=== PATIENT | female | born 1985 | race Hispanic/Latino ===

== ENCOUNTER 2020-03-29 14:34 | Emergency (ER) | payer OTHER ==
[~2020-03-29] VITALS: Ht 157.5 cm; Wt 93.0 kg
[2020-03-29 15:26] LABS: BASOPHILS % 0.3 % (0.0-1.0); EOSINOPHILS # (AUTO) 0.1 (0.0-0.4); EOSINOPHILS % 1.3 % (0.0-6.0); HEMATOCRIT 34.5 % (34.2-44.1); HEMOGLOBIN 11.1 g/dL (12.0-16.0); LYMPHOCYTES # (AUTO) 1.2 (1.0-3.2); LYMPHOCYTES % 13.5 % (18.0-39.1); MEAN CORPUSCULAR HEMOGLOBIN 27.5 pg (28-32); MEAN CORPUSCULAR HGB CONC 32.2 g/dL (31-35); MEAN CORPUSCULAR VOLUME 85.4 fL (81-99); MONOCYTES # (AUTO) 0.6 (0.2-0.8); NEUTROPHILS # (AUTO) 6.9 (2.1-6.9); NEUTROPHILS % 77.3 % (38.7-80.0); PLATELET COUNT 226 x10e3/uL (140-360); RED BLOOD COUNT 4.04 x10e6/uL (3.6-5.1); RED CELL DISTRIBUTION WIDTH 14.2 % (11.7-14.4)
[2020-03-29] MEDS ORDERED: ONDANSETRON HCL INJ 2MG/ML 2ML 2 MG/ML VIAL IV STA (15:26)
[2020-03-29] MEDS ORDERED: MORPHINE SULFATE INJ 4 MG/ML INJ 1ML IV PRN ×2 (15:30→17:15)
[2020-03-29] MEDS ORDERED: SODIUM CHLORIDE 0.9% 1000ML 1,000 ML IV SCH ×2 (15:30→17:00)
[2020-03-29 15:44] LABS: PREGNANCY TEST, URINE NEGATIVE (NEGATIVE)
[2020-03-29 15:45] LABS: CLARITY,URINE CLEAR (CLEAR); COLOR,URINE YELLOW (YELLOW); KETONES,URINE NEGATIVE (NEGATIVE); LEUKOCYTE ESTERASE ,URINE NEGATIVE (NEGATIVE); NITRITE,URINE NEGATIVE (NEGATIVE); PROTEIN,URINE DIPSTICK NEGATIVE (NEGATIVE)
[2020-03-29 15:46] LABS: BILIRUBIN,URINE NEGATIVE (NEGATIVE); URINE UROBILINOGEN 0.2 mg/dL (0.2 - 1)
[2020-03-29 15:52] LABS: ALANINE AMINOTRANSFERASE 29 IU/L (0-55); ALBUMIN 3.9 g/dL (3.5-5.0); ALBUMIN/GLOBULIN RATIO 1.1 (0.8-2.0); ALKALINE PHOSPHATASE 74 IU/L (40-150); ANION GAP 14.7 mmol/L (8-16); BLOOD UREA NITROGEN 12 mg/dL (7-26); BUN/CREATININE RATIO 20 (6-25); CALCIUM 8.7 mg/dL (8.4-10.2); CARBON DIOXIDE 22 mmol/L (22-29); CHLORIDE 104 mmol/L (98-107); EST GLOMERULAR FILTRATION RATE > 60 ML/MIN (60-); GLUCOSE 89 mg/dL (74-118); POTASSIUM 3.7 mmol/L (3.5-5.1); SODIUM 137 mmol/L (136-145)
[2020-03-29 15:57] LABS: BACTERIA,URINE MANY /HPF; EPITHELIAL CELLS,URINE MODERATE /LPF; MUCUS,URINE FEW (RARE); RENAL EPITHELIAL CELLS,URINE FEW; TRANSITIONAL EPI CELLS,URINE FEW
--- NOTE | 2020-03-29 16:04 | Emergency Department Note ---
History of Present Illnes History of Present Illness Chief Complaint: Abdominal Complaints History of Present Illness This is a 35 year old female arrives to the ED via require abdominal pain for several days. Patient states pain wraps on her back and is also complaining of nausea and vomiting. . 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[employer] states pain came on suddenly after drinking protein shake c/o nausea no vomiting no diarrhea states she's had this happen once before after hysterectomy apr 2019 but not since denies dysuria/hematuria no hx of kidney stones still has gallbladder and appendix states pain was so pain she almost passed out but did not pass out just got sweaty and pale never smoked occasional drinker denies drug use Historian: Patient Arrival Mode: Car Onset (how long ago): day(s) Radiation: Reports back Severity: moderate Onset quality: sudden Duration (how long): day(s) Timing of current episode: constant Progression: worsening Chronicity: new Relieving factors: none Exacerbating factors: none Associated symptoms: Reports nausea/vomiting Past Medical/Family History Physician Review I have reviewed the patient's past medical and family history. Any updates have been documented here. Past Medical History Recent Fever: No Clinical Suspicion of Infectio: No New/Unexplained Change in Ment: No Past Medical History: None Past Surgical History: Hysterectomy Social History Smoking Cessation: Never Smoker Counseling Performed: No Alcohol Use: None Any Illegal Drug Use: No Physically hurt or threatened: No Other Any Pre-Existing Lines (PICC,: No Review of Systems Review of Systems Constitutional: Reports no symptoms EENTM: Reports no symptoms Cardiovascular: Reports no symptoms Respiratory: Reports no symptoms Gastrointestinal: Reports as per HPI, Reports abdominal pain, Reports nausea, Reports vomiting Genitourinary: Reports no symptoms Musculoskeletal: Reports no symptoms Integumentary: Reports no symptoms Neurological: Reports no symptoms Psychological: Reports no symptoms Endocrine: Reports no symptoms Hematological/Lymphatic: Reports no symptoms Physical Exam Related Data Allergies: Coded Allergies: No Known Allergies (Unverified , 03/29/20) Triage Vital Signs Vital Signs Date Time Temp Pulse Resp B/P (MAP) Pulse Ox O2 Delivery O2 Flow Rate FiO2 03/29/20 14:54 98.8 78 18 149/91 100 Room Air Vital signs reviewed: Yes Physical Exam CONSTITUTIONAL Constitutional: Present well-developed, Present well-nourished HENT HENT: Present normocephalic, Present atraumatic, Present oropharynx cira r/moist, Present nose normal HENT L/R: Present left ext ear normal, Present right ext ear normal EYES Eyes: Reports PERRL, Reports conjunctivae normal NECK Neck: Present ROM normal PULMONARY Pulmonary: Present effort normal, Present breath sounds normal CARDIOVASCULAR Cardiovascular: Present regular rhythm, Present heart sounds normal, Present capillary refill normal, Present normal rate GASTROINTESTINAL Abdominal: Present soft, Present bowel sounds normal, Present tender, Present guarding GENITOURINARY Genitourinary: Present exam deferred SKIN Skin: Present warm, Present dry MUSCULOSKELETAL Musculoskeletal: Present ROM normal NEUROLOGICAL Neurological: Present alert, Present oriented x 3, Present no gross motor or sensory deficits PSYCHOLOGICAL Psychological: Present mood/affect normal, Present judgement normal Results Laboratory Result Diagram: 03/29/20 1510 03/29/20 1510 Laboratory Laboratory Tests Test 03/29/20 15:10 03/29/20 15:04 White Blood Count 8.90 x10e3/uL (4.8-10.8) Red Blood Count 4.04 x10e6/uL (3.6-5.1) Hemoglobin 11.1 g/dL (12.0-16.0) Hematocrit 34.5 % (34.2-44.1) Mean Corpuscular Volume 85.4 fL (81-99) Mean Corpuscular Hemoglobin 27.5 pg (28-32) Mean Corpuscular Hemoglobin Concent 32.2 g/dL (31-35) Red Cell Distribution Width 14.2 % (11.7-14.4) Platelet Count 226 x10e3/uL (140-360) Neutrophils (%) (Auto) 77.3 % (38.7-80.0) Lymphocytes (%) (Auto) 13.5 % (18.0-39.1) Monocytes (%) (Auto) 7.0 % (4.4-11.3) Eosinophils (%) (Auto) 1.3 % (0.0-6.0) Basophils (%) (Auto) 0.3 % (0.0-1.0) Neutrophils # (Auto) 6.9 (2.1-6.9) Lymphocytes # (Auto) 1.2 (1.0-3.2) Monocytes # (Auto) 0.6 (0.2-0.8) Eosinophils # (Auto) 0.1 (0.0-0.4) Basophils # (Auto) 0.0 (0.0-0.1) Absolute Immature Granulocyte (auto 0.05 x10e3/uL (0-0.1) Sodium Level 137 mmol/L (136-145) Potassium Level 3.7 mmol/L (3.5-5.1) Chloride Level 104 mmol/L (98-107) Carbon Dioxide Level 22 mmol/L (22-29) Anion Gap 14.7 mmol/L (8-16) Blood Urea Nitrogen 12 mg/dL (7-26) Creatinine 0.60 mg/dL (0.57-1.11) Estimat Glomerular Filtration Rate > 60 ML/MIN (60-) BUN/Creatinine Ratio 20 (6-25) Glucose Level 89 mg/dL (74-118) Calcium Level 8.7 mg/dL (8.4-10.2) Total Bilirubin 0.4 mg/dL (0.2-1.2) Aspartate Amino Transf (AST/SGOT) 30 IU/L (5-34) Alanine Aminotransferase (ALT/SGPT) 29 IU/L (0-55) Alkaline Phosphatase 74 IU/L (40-150) Total Protein 7.3 g/dL (6.5-8.1) Albumin 3.9 g/dL (3.5-5.0) Globulin 3.4 g/dL (2.3-3.5) Albumin/Globulin Ratio 1.1 (0.8-2.0) Urine Color Yellow (YELLOW) Urine Clarity Clear (CLEAR) Urine pH 5.5 (5 - 7) Urine Specific [place] 1.025 (1.010-1.025) Urine Protein Negative (NEGATIVE) Urine Glucose (UA) Negative (NEGATIVE) Urine Ketones Negative (NEGATIVE) Urine Blood Negative (NEGATIVE) Urine Nitrite Negative (NEGATIVE) Urine Bilirubin Negative (NEGATIVE) Urine Urobilinogen 0.2 mg/dL (0.2 - 1) Urine Leukocyte Esterase Negative (NEGATIVE) Urine RBC 6-10 /HPF (0-5) Urine WBC 6-10 /HPF (0-5) Urine Epithelial Cells Moderate /LPF (NONE) Urine Transitional Epithelial Cells Few (NONE) Urine Renal Epithelial Cells Few (NONE) Urine Bacteria Many /HPF (NONE) Urine Mucus Few (RARE) Urine Test Negative (NEGATIVE) Lab results reviewed: Yes Imaging Imaging results reviewed: Yes Assessment & Plan Medical Decision Making MDM 35-year-old female arrived to the ED with right upper quadrant abdominal pain. Patient clinically appears positive for acute cholecystitis. Patient admitted for general surgery evaluation. Assessment & Plan Final Impression: (1) Acute cholecystitis Depart Disposition: ADMITTED Last Vital Signs Date Time Temp Pulse Resp B/P (MAP) Pulse Ox O2 Delivery O2 Flow Rate FiO2 03/29/20 14:54 98.8 78 18 149/91 100 Room Air Medications in the ED Sodium Chloride 1,000 ml @ 100 mls/hr Q10H IV Last administered on 03/29/20at 15:50; Admin Dose 100 MLS/HR; Start 03/29/20 at 15:30; Stop 04/28/20 at 15:29 Morphine Sulfate 4 mg ONCE PRN IV SEVERE PAIN (7-10) Last administered on 03/29/20at 15:50; Admin Dose 4 MG; Start 03/29/20 at 15:30; Stop 04/05/20 at 15:29 Ondansetron HCl 4 mg NOW STAT IV Last administered on 03/29/20at 15:49; Admin Dose 4 MG; Start 03/29/20 at 15:26; Stop 03/29/20 at 15:40; Status LORETTA SKAGGS DO Mar 29, 2020 16:04
[2020-03-29] MEDS ORDERED: SODIUM CHLORIDE 0.9% 50ML 50 ML ONE (16:15)
[2020-03-29] MEDS ORDERED: IOPAMIDOL 370 MG/ML 200 ML INFUS..BTL INJ ONE (16:15)
--- NOTE | 2020-03-29 16:27 | Diagnostic Imaging Report ---
EXAM: CT Abdomen and Pelvis WITH intravenous contrast INDICATION: Abdominal pain COMPARISON: None. TECHNIQUE: Abdomen and pelvis were scanned utilizing a multidetector helical scanner from the lung base to the pubic symphysis after administration of IV contrast. Coronal and sagittal reformations were obtained. Routine protocol was performed. Scan was performed during portal venous phase. IV CONTRAST: 100mL of Isovue 370 ORAL CONTRAST: Water RADIATION DOSE: Total DLP: 731 mGy*cm Dose modulation, iterative reconstruction, and/or weight based adjustment of the mA/kV was utilized to reduce the radiation dose to as low as reasonably achievable. FINDINGS: LOWER THORAX: Normal. HEPATOBILIARY: No focal liver lesion. No biliary ductal dilation. Cholelithiasis without CT evidence of cholecystitis. SPLEEN: No splenomegaly. PANCREAS: No focal masses or ductal dilatation. ADRENALS: No adrenal nodules. KIDNEYS/URETERS: No hydronephrosis, stones, or solid mass lesions. Subcentimeter right renal cyst. PELVIC ORGANS/BLADDER: Unremarkable. PERITONEUM / RETROPERITONEUM: No free air or fluid. LYMPH NODES: No lymphadenopathy. VESSELS: Unremarkable. GI TRACT: No abnormal bowel thickening. No bowel obstruction. BONES AND SOFT TISSUES: No acute osseous injury. No suspicious lytic or blastic lesions. IMPRESSION: Cholelithiasis without CT evidence of cholecystitis. No other acute findings in the abdomen or pelvis. Signed by: Twin Fernandez MD on 03/29/2020 4:24 PM
[2020-03-29] MEDS ORDERED: ONDANSETRON HCL INJ 2MG/ML 2ML 2 MG/ML VIAL IV PRN (17:00)
[2020-03-29] MEDS ORDERED: MORPHINE SULFATE 2 MG/ML SYR 1ML IV PRN (17:00)
--- OUTSIDE RECORDS SUMMARY | 2020-03-29 17:23 | XMS REPORT | Continuity of Care Document ---
Author Author [facility] Organization [facility] Address [address] [place] [address] Phone Unavailable Care Team Providers Care Visual Merchandiser Name Role Phone Tish Freeman MD PCP [phone] Gilma GARCIA Attphys Unavailable Problems This patient has no known problems. Allergies, Adverse Reactions, Alerts This patient has no known allergies or adverse reactions. Social History Social Habit Start Date Stop Date Quantity Comments Source Sex Assigned At Dea k[facility]y [facility] Alcohol intake 2017-06-04 00:00:00 2017-06-04 00:00:00 Current drinker of alcohol (finding) Martini [facility] Smoking Status Start Date Stop Date Source Never smoker Vini stovall Medications Ordered Medication Name Filled Medication Name Start Date Stop Da te Current Medication? Ordering Clinician Indication Dosage Frequency Signature (SIG) Comments Components Source spironolactone (ALDACTONE) 50 MG tablet 2016-12-09 00:00:00 Yes 1{tbl} [id number] Take 1 tablet by mouth 3 (three) times a day. Vini Avalos Immunizations Ordered Immunization Name Filled Immunization Name Date Status Comments Source Influenza Trivalent 2017-05-17 00:00:00 Completed Vini Avalos Tdap 2012-08-17 00:00:00 Completed [facility] on [facility] Procedures This patient has no known procedures. Plan of Care Planned Activity Planned Date Details Comments Source Future Scheduled Test 2020-04-17 00:00:00 INFLUENZA VACCINE [code = INFLUENZA VACCINE] Vini Avalos Future Scheduled Test 2006 00:00:00 Screening for bren[place] gnant neoplasm of cervix (procedure) [code = 750782164] [facility] Results Test Description Test Time Test Comments Results Result Comments Source CT ABDOMEN/PELVIS W 2020-03-29 16:19:00 [facility] [address] [address] Patient Name: MATT MIX MR #: [id number] : 1985 Age/Sex: 35/F Req #: [id number] Adm Physician: Ordered by: LORETTA GARCIA DO Report #: [id number] Location: ER Room/Bed: Procedure: [id number] CT/CT ABDOMEN/PELVIS W Exam Date: 03/29/20 Exam Time: 1600 REPORT STATUS: Signed EXAM: CT Abdomen and Pelvis WITH intravenous contrast INDICATION: Abdominal pain COMPARISON: None. TECHNIQUE: Abdomen and pelvis were scanned utilizing a multidetector helical scanner from the lung base to the pubic symphysis after administration of IV contrast. Coronal and sagittal reformations were obtained. Routine protocol was performed. Scan was performed during portal venous phase. IV CONTRAST: 100mL of Isovue 370 ORAL CONTRAST: Water RADIATION DOSE: Total DLP: 731 mGy*cm Dose modulation, iterative reconstruction, and/or weight based adjustment of the mA/kV was utilized to reduce the radiation dose to as low as reasonably achievable. FINDINGS: LOWER THORAX: Normal. HEPATOBILIARY: No focal liver lesion. No biliary ductal dilation. Cholelithiasis without CT evidence of cholecystitis. SPLEEN: No splenomegaly. PANCREAS: No focal masses or ductal dilatation. ADRENALS: No adrenal nodules. KIDNEYS/URETERS: No hydronephrosis, stones, or solid mass lesions. Subcentimeter right renal cyst. PELVIC ORGANS/BLADDER: Unremarkable. PERITONEUM / RETROPERITONEUM: No free air or fluid. LYMPH NODES: No lymphadenopathy. VESSELS: Unremarkable. GI TRACT: No abnormal bowel thickening. No bowel obstruction. BONES AND SOFT TISSUES: No acute osseous injury. No suspicious lytic or blastic lesions. IMPRESSION: Cholelithiasis without CT evidence of cholecystitis. No other acute findings in the abdomen or pelvis. Signed by: Tamiko Galan MD on 03/29/2020 4:24 PM Dictated By: TAMIKO GALAN MD Transcribed By: MANDA on 03/29/209 COPY TO: LORETTA GARCIA DO
--- OUTSIDE RECORDS SUMMARY | 2020-03-29 17:23 | XMS REPORT | Clinical Summary ---
Author Author [facility] Organization [facility] Address Unknown Phone Unavailable Care Team Providers Care Tag Meter Operator Name Role Phone Susi Freeman MD PCP [phone] Allergies No Known Allergies Medications End Date Status Medication Sig Dispensed Refills Start Date Active spironolactone Take 1 tablet 1 (ALDACTONE) 50 MG tablet by mouth 3 7 (three) times a day. Active Problems No known active problems Immunizations Name Administration Dates Next Due Influenza Trivalent 05/17/2017 Tdap 08/17/2012 Family History Relation Name Status Comments Father Alive Mother Alive Social History Date Tobacco Use Types Packs/Day Years Used Never Smoker Drinks/Week oz/Week Comments Alcohol Use 2 Glasses of wine 2 Standard drinks or equivalent Yes Sex Assigned at Date Recorded Not on file Industry Job Start Date Occupation Not on file Not on file Not on file Travel End Travel History Travel Start No recent travel history available. Last Filed Vital Signs Not on file Plan of Treatment Health Maintenance Due Date Last Done Comments CERVICAL CANCER SCREENING 2006 INFLUENZA VACCINE 04/17/2020 05/31/2019, 05/17/2017 Results Not on fileafter 03/29/2019 Insurance Type Payer Benefit Subscriber ID Effective Phone Address Plan / Dates Group PPO CIGNA CIGNA PPO xxxxxxxxxxx [id number] resent Advance Directives For more information, please contact: [phone] Patient Model And Dye Person Explanation Type Date Recorded Advance Directives, Living Will and Medical Power of Broadcast Designer Advance Directives, Living Will and Medical Power of Broadcast Designer
[2020-03-29] MEDS ORDERED: ULTRAM 50MG50 MG PO (17:40)
[2020-03-29] MEDS ORDERED: ZOFRAN4 MG SL (17:40)
== END 2020-03-29 18:17 | disposition home or self-care (01) ==
LOC: ER 15:00
DX: R10.11 Right upper quadrant pain (principal); R11.2 Nausea with vomiting, unspecified; K81.9 Cholecystitis, unspecified; Z11.59 Encounter for screening for other viral diseases
CPT/HCPCS: 36415; 74177; 80053; 81001; 81025; 85025; 99284; J2270; J2405; J7030; Q9967; U0002